=== PATIENT | female | born 1975 | race Caucasian/White ===

== ENCOUNTER 2021-06-17 06:30 | Day surgery (SDC) | payer OTHER, SELFPAY ==
[~2021-06-17] VITALS: Ht 175.3 cm; Wt 115.2 kg
[2021-06-17] MEDS ORDERED: MIDAZOLAM 5 MG/5 ML VIAL ONE (08:28)
[2021-06-17] MEDS ORDERED: diphenhydrAMINE 50 MG/ML VIAL ONE (08:28)
[2021-06-17] MEDS ORDERED: fentaNYL citrate 0.05 MG/ML VIAL ONE ×2 (08:28→08:30)
[2021-06-17] MEDS ORDERED: LIDOCAINE 2% 100 MG/5 ML UJET TP ONE (08:29)
[2021-06-17] MEDS ORDERED: fentaNYL citrate 0.05 MG/ML VIAL IVP ONE (13:10)
[2021-06-17] MEDS ORDERED: diphenhydrAMINE 50 MG/ML VIAL IVP ONE (13:10)
[2021-06-17] MEDS ORDERED: MIDAZOLAM 2 MG/2 ML VIAL IVP ONE (13:10)
== END 2021-06-17 09:35 | disposition home or self-care (01) ==
LOC: MDS 06:30 → MMU 06:31 → MDS 09:35
PROVIDERS: ATTEND Internal Medicine Gastroenterology
DX: Z12.11 Encounter for screening for malignant neoplasm of colon (principal); K63.5 Polyp of colon; K57.30 Diverticulosis of large intestine without perforation or abscess without bleeding; I10 Essential (primary) hypertension; E78.5 Hyperlipidemia, unspecified; F17.210 Nicotine dependence, cigarettes, uncomplicated; Z80.0 Family history of malignant neoplasm of digestive organs; Z90.49 Acquired absence of other specified parts of digestive tract; Z98.890 Other specified postprocedural states; Z88.8 Allergy status to other drugs, medicaments and biological substances; Z79.899 Other long term (current) drug therapy
CPT/HCPCS: 45380; 45385; 81025; 87426; 88305; J1200; J2250; J3010